=== PATIENT | female | born 1960 | race Two or more races ===

== ENCOUNTER 2017-09-18 11:23 | Emergency (ER) | payer OTHER ==
[2017-09-18 11:36] VITALS: BP 137/76; PULSE 66; TEMP 97.7; BMI 50.8
--- NOTE | 2017-09-18 14:20 | PDOC ---
History of Present Illness - History of Present Illness Initial Comments: 09/18/17 14:18 <Caden Stanton - Last Filed: 09/18/17 18:11> - General History Source: Patient Exam Limitations: No Limitations - History of Present Illness Initial Comments: 09/18/17 18:57 The patient is a 56 year old female, with a significant past medical history of HIV (last CD4 count of 800s and undetectable viral load, on Atripla), HTN, HLD, DM, Arthritis, Asthma, Hx of DVT (on Xarelto) who presents to the emergency department with LLQ abdominal pain for the past 3 days. Patient reports worsening LLQ abdominal with associated nausea and vomiting (nonbilious, nonbloody) after she was brushing her teeth. Patient reports the pain waxes and wanes, radiating to her back. Patient is able to pass flatus and with normal BM yesterday. Patient states her abdominal pain has been worsening and presents to the ED for further evaluation. Note, patient has been taking percocet TID for chronic knee pain with no relief. She denies chest pain, headache or dizziness. She denies fever, chills, diarrhea or constipation. She denies dysuria, frequency, urgency or hematuria. Patient denies sick contacts or recent travel. pt does endorse intermitnte constipation - last bm was yesterday. Allergies: morphine Past surgical history: Cholecystectomy, C section Social history: None PCP: Harper Nino <Sonam Kessler - Last Filed: 09/18/17 18:57> - General Chief Complaint: Pain Stated Complaint: ABD PAIN Time Seen by Provider: 09/18/17 13:57 Past History - Past Medical History Asthma: Yes Cardiac Disorders: No COPD: Yes Dementia: No Diabetes: No Disorders: Yes (renal stones) HTN: Yes Hypercholesterolemia: Yes Liver Disease: No Seizures: No - Surgical History Cholecystectomy: Yes (general anesthesia, no complications) - Suicide/Smoking/Psychosocial Hx Smoking History: Never smoked Have you smoked in the past 12 months: No If you are a former smoker, when did you quit?: Approx. 15 years ago. Cigars Per Day: 0 Information on smoking cessation initiated: No Hx Alcohol Use: No Drug/Substance Use Hx: No Substance Use Type: None Hx Substance Use Treatment: No <Caden Stanton - Last Filed: 09/18/17 18:11> <Sonam Kessler - Last Filed: 09/18/17 18:57> - Past Medical History Allergies/Adverse Reactions: Allergies Allergy/AdvReac Type Severity Reaction Status Date / Time morphine Allergy Intermediate Swelling Verified 09/18/17 11:33 Home Medications: Ambulatory Orders Albuterol Sulfate Inhaler - [Ventolin Hfa Inhaler -] 1 inh PO Q6H PRN 09/18/17 Cetirizine HCl [Zyrtec -] 10 mg PO DAILY 09/18/17 Docusate Sodium 200 mg PO BID 09/18/17 Efavirenz/Emtricitab/Tenofovir [Atripla -] 1 tab PO DAILY 09/18/17 Famotidine [Pepcid -] 20 mg PO DAILY 09/18/17 Gabapentin 600 mg PO BID 09/18/17 Lisinopril 10 mg PO DAILY 09/18/17 Multivitamin [One Daily] 1 each PO DAILY 09/18/17 Naproxen Sodium [Naproxen Sodium Ds] 550 mg PO BID 09/18/17 Oxybutynin Chloride [Oxybutynin Chloride ER] 10 mg PO DAILY 09/18/17 Oxycodone HCl/Acetaminophen [Percocet 10-325 mg Tablet] 1 each PO TID PRN Ranitidine HCl [Zantac] 150 mg PO BID 09/18/17 Rivaroxaban [Xarelto -] 20 mg PO DAILY 09/18/17 Rosuvastatin [Crestor -] 40 mg PO DAILY 09/18/17 Sennosides [Senna] 2 tab PO HS 09/18/17 Trazodone HCl [Desyrel -] 150 mg PO HS 09/18/17 Vitamin B Complex [Bal B-50] 1 each PO DAILY 09/18/17 Review of Systems - Review of Systems Able to Perform ROS?: Yes Comments:: 09/18/17 18:57 CONSTITUTIONAL: No reported: Fever, Chills, Diaphoresis, Generalized Weakness, Malaise, Loss of Appetite HEENT: No reported: Rhinorrhea, Nasal Congestion, Throat Pain, Throat Swelling, Difficulty Swallowing, Mouth Swelling, Ear Pain, Eye Pain, Visual Changes CARDIOVASCULAR: No reported: Chest Pain, Syncope, Palpitations, Irregular Heart Rate, Lightheadedness, Peripheral Edema RESPIRATORY: No reported: Cough, Shortness of Breath, SOB with Exertion, Orthopnea, Wheezing , Stridor, Hemoptysis GASTROINTESTINAL: +abdominal pain. +nausea. +vomiting. No reported: Abdominal Distension, Diarrhea, Constipation, Melena, Hematochezia GENITOURINARY: No reported: Dysuria, Frequency, Urgency, Hesitancy, Flank Pain, Genital Pain MUSCULOSKELETAL: No reported: Myalgia, Arthralgia, Joint Swelling, Back pain, Neck Pain SKIN: No reported: Rash, Itching, Pallor HEMEATOLOGIC/IMMUNOLOGIC: No reported: Easy Bleeding, Easy Bruising, Lymphadenopathy, Frequent infections ENDOCRINE: No reported: Unexplained Weight Gain, Unexplained Weight Loss, Heat Intolerance , Cold Intolerance NEUROLOGIC: No reported: Headache, Focal Weakness, Paresthesias, Vertigo, Lightheadedness, Unsteady Gait, Seizure, Mental Status Changes, Incontinence PSYCHIATRIC: No reported: Anxiety, Depression <Sonam Kessler - Last Filed: 09/18/17 18:57> *Physical Exam - Vital Signs Last Vital Signs Temp Pulse Resp BP Pulse Ox 97.7 F 66 18 137/76 100 09/18/17 11:33 09/18/17 11:33 09/18/17 11:33 09/18/17 11:33 09/18/17 11:33 <Caden Stanton - Last Filed: 09/18/17 18:11> - Vital Signs Last Vital Signs Temp Pulse Resp BP Pulse Ox 97.7 F 66 18 137/76 100 09/18/17 11:33 09/18/17 11:33 09/18/17 11:33 09/18/17 11:33 09/18/17 11:33 - Physical Exam Comments: 09/18/17 18:57 GENERAL: The patient is awake, alert, and fully oriented, Nontoxic - in no acute distress. HEAD: Normocephalic, atraumatic. EYES: extraocular movements intact, sclera anicteric, conjunctiva clear. ENT: Normal voice, Moist mucous membranes. NECK: Normal range of motion, supple LUNGS: Breath sounds equal, clear to auscultation bilaterally. No wheezes, no rhonchi, no rales. HEART: Regular rate and rhythm, without murmur, rub or gallop. ABDOMEN: +Mild diffuse L sided abdominal tenderness. +Obese. Soft, nontender, normoactive bowel sounds. No guarding, no rebound.No CVA tenderness EXTREMITIES: Normal range of motion, no edema. No clubbing or cyanosis. No cords, erythema, or tenderness. NEUROLOGICAL: No facial asymmetry, Normal speech, PSYCH: Normal mood, normal affect. SKIN: Warm, Dry, normal turgor. <Sonam Kessler - Last Filed: 09/18/17 18:57> ED Treatment Course - LABORATORY CBC & Chemistry Diagram: 09/18/17 15:12 09/18/17 15:12 <Caden Stanton - Last Filed: 09/18/17 18:11> - LABORATORY CBC & Chemistry Diagram: 09/18/17 15:12 09/18/17 15:12 - ADDITIONAL ORDERS Additional order review: Laboratory Results 09/18/17 09/18/17 09/18/17 15:12 15:12 15:12 PT with INR 12.80 H INR 1.13 D Sodium Potassium Chloride Carbon Dioxide Anion Gap BUN Creatinine Creat Clearance w eGFR Random Glucose Calcium Total Bilirubin AST ALT Alkaline Phosphatase Total Protein Albumin Lipase 112 Urine Color Lt. yellow Urine Appearance Clear Urine pH 5.5 Ur Specific [employer] >= 1.030 Urine Protein Negative Urine Glucose (UA) Negative Urine Ketones Negative Urine Blood Negative Urine Nitrite Negative Urine Bilirubin Negative Urine Urobilinogen 0.2 09/18/17 15:12 PT with INR INR Sodium 138 Potassium 4.3 Chloride 105 Carbon Dioxide 29 Anion Gap 4 L BUN 13 D Creatinine 0.7 D Creat Clearance w eGFR > 60 Random Glucose 96 D Calcium 8.8 Total Bilirubin 0.4 D AST 16 ALT 32 Alkaline Phosphatase 139 H Total Protein 8.0 Albumin 4.1 Lipase Urine Color Urine Appearance Urine pH Ur Specific [employer] Urine Protein Urine Glucose (UA) Urine Ketones Urine Blood Urine Nitrite Urine Bilirubin Urine Urobilinogen 09/18/17 15:12 RBC 4.28 MCV 86.6 MCHC 32.3 RDW 14.2 MPV 8.8 Neutrophils % 39.9 L Lymphocytes % 48.6 H Monocytes % 8.3 Eosinophils % 2.6 Basophils % 0.6 - Medications Given in the ED: ED Medications Discontinued Medications Generic Name Dose Route Start Last Admin Trade Name Freq PRN Reason Stop Dose Admin Ketorolac Tromethamine 30 mg 09/18/17 14:21 09/18/17 14:54 Toradol Injection - IVPUSH 09/18/17 14:22 Not Given ONCE ONE Oxycodone/Acetaminophen 1 combo 09/18/17 14:35 09/18/17 14:59 Percocet 5/325 - PO 09/18/17 14:36 1 combo ONCE ONE Administration <Sonam Kessler - Last Filed: 09/18/17 18:57> Medical Decision Making - Medical Decision Making 09/18/17 14:29 56y F hx hiv on atripla, dvt on xerolto, presents with complaint of of LLQ pain x 3days, constant but waxes and wanes, radiates to the back, on percocet for knee pain. no fever/chills, urinary or bowel symtoms. on exam she is no distress, but with mild diffuse lower abdominal tenderness differential includes kidney stones, diverticlosis, will ck cbc, cmp, ua will give percocet for pain due to allergy to morphine (States she has swelling ) and being NSAIDS contraindicated in setting of being on a/c A portion of this note was documented by scribe services under my direction. I have reviewed the details of the note, within reason, and agree with the documentation with the following case summary and management plan written by me 09/18/17 18:11 pts labs urnemarkble states she is feeling better she eloped priro to discharge <Caden Stanton - Last Filed: 09/18/17 18:11> *DC/Admit/Observation/Transfer <Caden Stanton - Last Filed: 09/18/17 18:11> - Attestations Scribe Attestion: 09/18/17 18:47 Documentation prepared by Sonam Kessler, acting as medical equipment repairer for Caden Stanton MD <Sonam Kessler - Last Filed: 09/18/17 18:57> Diagnosis at time of Disposition: Abdominal pain, pt eloped ripping her IV out in the process...md aware. - Discharge Dispostion Disposition: ELOPED Condition at time of disposition: Stable - Referrals Referrals: Harper Joyce MD [Primary Care Provider] - - Patient Instructions - Post Discharge Activity
[2017-09-18] MEDS ORDERED: KETOROLAC TROMETHAMINE 30 MG/1 ML VIAL IVPUSH ONE (14:21)
[2017-09-18 16:34] LABS: BASOPHIL 0.6 % (0-2.0); EOSINOPHIL 2.6 % (0-4.5); MCHC 32.3 g/dl (32.0-36.0); MEAN CELL VOLUME 86.6 fl (80-96); MEAN PLT VOLUME 8.8 fl (7.5-11.1); NEUTROPHILS 39.9 % (42.8-82.8); PLATELET COUNT 186 K/MM3 (134-434); RDW 14.2 % (11.6-15.6); WHITE BLOOD COUNT 4.7 K/mm3 (4.0-10.0)
[2017-09-18 16:44] LABS: PH,URINE 5.5 (5.0-8.0); URINE APPEARANCE CLEAR; URINE BILIRUBIN NEGATIVE (NEGATIVE); URINE BLOOD NEGATIVE (NEGATIVE); URINE COLOR LT. YELLOW; URINE GLUCOSE (UA) NEGATIVE (NEGATIVE); URINE KETONE NEGATIVE (NEGATIVE); URINE NITRITE NEGATIVE (NEGATIVE); URINE PROTEIN NEGATIVE (NEGATIVE); URINE UROBILINOGEN 0.2 mg/dL (0.2-1.0)
[2017-09-18 17:01] LABS: INR 1.13 (0.82-1.09); PROTHROMBIN TIME (PATIENT) 12.8 SEC (9.98-11.88)
[2017-09-18 17:12] LABS: ALBUMIN 4.1 g/dl (3.4-5.0); ANION GAP 4 (8-16); CALCIUM 8.8 mg/dL (8.5-10.1); CO2 29 mmol/L (21-32); CREATININE 0.7 mg/dL (0.55-1.02); GLUCOSE,RANDOM 96 mg/dL (74-106); SGPT/ALT 32 U/L (12-78)
[2017-09-18 17:17] LABS: ALK PHOS 139 U/L (45-117); BILIRUBIN,TOTAL 0.4 mg/dL (0.2-1.0); SGOT/AST 16 U/L (15-37)
[2017-09-18 20:15] LABS: URINE LEUK ESTERASE Negative (NEGATIVE)
== END 2017-09-18 18:11 | disposition left against medical advice (07) ==
LOC: JER 11:23
DX: R10.32 Left lower quadrant pain (principal); I10 Essential (primary) hypertension; E11.9 Type 2 diabetes mellitus without complications; E78.00 Pure hypercholesterolemia, unspecified; J45.909 Unspecified asthma, uncomplicated; M12.9 Arthropathy, unspecified; Z86.718 Personal history of other venous thrombosis and embolism; Z79.01 Long term (current) use of anticoagulants; Z21 Asymptomatic human immunodeficiency virus [HIV] infection status
CPT/HCPCS: 36415; 80053; 81003; 83690; 85025; 85610; 99283-25

== ENCOUNTER → 2019-06-25 | Outpatient (CLI) | payer OTHER | LOC: YHH 14:29 ==

== ENCOUNTER 2019-07-02 09:13 | Day surgery (SDC) | payer OTHER ==
[2019-07-01 14:51] VITALS: BMI 46.6
[2019-07-02 11:21] VITALS: TEMP 97.5
[2019-07-02 15:04] VITALS: BP 133/80; PULSE 72
--- NOTE | 2019-07-03 15:56 | PATH ---
Surgical Pathology Report Patient Name: LINDSEY DEVLIN [facility]. Rec. #: [id number] /Age/Gender: 1960 (Age: 58) / F Account: [id number] Location: U-ENDOSCOPY Taken: 07/02/2019 Received: 07/02/2019 Reported: 07/03/2019 Physicians: Jaz Alicea M.D. Specimen(s) Received A: DUODENUM, SECOND PORTION AND BULB B: CARDIA POLYP C: ANTRUM D: GE JUNCTION E: MID ESOPHAGUS Clinical History Dysphagia Postoperative diagnosis: GERD, hiatal hernia Final Diagnosis A. DUODENUM, SECOND PORTION AND BULB, BIOPSY: DUODENAL MUCOSA WITH MODERATE ACUTE AND CHRONIC DUODENITIS. B. STOMACH, CARDIA POLYP, BIOPSY: FUNDIC GLAND POLYP. NO HELICOBACTER-LIKE ORGANISMS IDENTIFIED. C. STOMACH, ANTRUM, BIOPSY: GASTRIC ANTRAL MUCOSA WITH MODERATE CHRONIC GASTRITIS. IMMUNOHISTOCHEMICAL STAIN FOR H. PYLORI IS NEGATIVE. D. GE JUNCTION, BIOPSY: SQUAMOUS MUCOSA WITH CHANGES OF MODERATE REFLUX TYPE ESOPHAGITIS. NO COLUMNAR MUCOSA, INTESTINAL METAPLASIA, OR DYSPLASIA IDENTIFIED. E. MID ESOPHAGUS, BIOPSY: SQUAMOUS MUCOSA WITH CHANGES OF MILD REFLUX TYPE ESOPHAGITIS. Electronically Signed Delores Traylor M.D. Addendum Reported: 07/04/2019 Addendum Diagnosis Part B, Immunohistochemical stain for H. pylori is negative. Delores Traylor M.D. Gross Description A. Received in formalin, labeled "second portion of duodenum" are 3 campos, irregular portions of soft tissue ranging in size from 0.4-0.5 cm. in greatest dimension. The specimens are submitted in toto in one cassette. B. Received in formalin, labeled "cardia polyp" is a campos, irregular portion of soft tissue measuring 0.4 cm. in greatest dimension. The specimen is submitted in toto in one cassette. C. Received in formalin, labeled "antrum" are 4 campos, irregular portions of soft tissue ranging in size from 0.2-0.5 cm. in greatest dimension. The specimens are submitted in toto in one cassette. D. Received in formalin, labeled "GE junction" are 3 campos, irregular portions of soft tissue measuring 0.2 and 0.4 cm. in greatest dimension. The specimens are submitted in toto in one cassette. E. Received in formalin, labeled "mid esophagus" are 2 campos, irregular portions of soft tissue measuring 0.3 cm. in greatest dimension. The specimens are submitted in toto in one cassette. [email or web address]/07/02/2019 ángel07/02/2019
== END 2019-07-02 12:10 | disposition home or self-care (01) ==
LOC: JASU-ENDO 09:13
PROVIDERS: ATTEND Internal Medicine Gastroenterology
PROC: 0DB68ZX Excision of Stomach, Via Natural or Artificial Opening Endoscopic, Diagnostic (ICD-10-PCS; 2019-07-02)
PROC: 0DB28ZX Excision of Middle Esophagus, Via Natural or Artificial Opening Endoscopic, Diagnostic (ICD-10-PCS; 2019-07-02)
PROC: 0DB38ZX Excision of Lower Esophagus, Via Natural or Artificial Opening Endoscopic, Diagnostic (ICD-10-PCS; 2019-07-02)
PROC: 0DB98ZX Excision of Duodenum, Via Natural or Artificial Opening Endoscopic, Diagnostic (ICD-10-PCS; principal; 2019-07-02 09:45)
DX: K21.9 Gastro-esophageal reflux disease without esophagitis (principal); K44.9 Diaphragmatic hernia without obstruction or gangrene; K22.70 Barrett's esophagus without dysplasia; K31.7 Polyp of stomach and duodenum; K29.80 Duodenitis without bleeding; I10 Essential (primary) hypertension; J44.9 Chronic obstructive pulmonary disease, unspecified; E66.01 Morbid (severe) obesity due to excess calories; G47.30 Sleep apnea, unspecified
CPT/HCPCS: 82962; 88305-TC; 88342-TC

== ENCOUNTER 2022-03-21 04:31 | Day surgery (SDC) | payer OTHER ==
[2022-03-16 16:31] VITALS: BMI 46.7
[2022-03-21] MEDS ORDERED: LIDOCAINE HCL/PF 1% SDV 5ML VIAL ONE (14:19)
[2022-03-21] MEDS ORDERED: LIDOCAINE HCL 1% PRESERVATIVE FREE - 30ML VIAL IJ ONE (14:46)
[2022-03-21] MEDS ORDERED: BUPIVACAINE HCL/PF 0.75% 10 ML VIAL NR ONE (14:52)
[2022-03-21 15:11] VITALS: BP 148/70; PULSE 68; TEMP 97.8
== END 2022-03-21 15:45 | disposition home or self-care (01) ==
LOC: JASU-SURG 04:31
PROVIDERS: ATTEND Pain Medicine Pain Medicine
PROC: BR16YZZ Fluoroscopy of Lumbar Facet Joint(s) using Other Contrast (ICD-10-PCS; 2022-03-21)
PROC: 3E0T3BZ Introduction of Anesthetic Agent into Peripheral Nerves and Plexi, Percutaneous Approach (ICD-10-PCS; principal; 2022-03-21 16:30)
DX: M47.816 Spondylosis without myelopathy or radiculopathy, lumbar region (principal); I10 Essential (primary) hypertension; E10.9 Type 1 diabetes mellitus without complications; Z79.4 Long term (current) use of insulin
CPT/HCPCS: 76000-TC-FY

== ENCOUNTER 2022-04-06 04:08 | Day surgery (SDC) | payer OTHER ==
[2022-04-05 11:26] VITALS: BMI 46.7
[2022-04-06] MEDS ORDERED: DEXAMETHASONE SOD PHOSPHATE 4 MG/1 ML VIAL ONE ×3 (09:48→10:36)
[2022-04-06] MEDS ORDERED: MIDAZOLAM HCL 2 MG/2 ML SINGLE DOSE VIAL ONE ×2 (09:49→10:06)
[2022-04-06] MEDS ORDERED: PROPOFOL 20 ML ONE (09:50)
[2022-04-06] MEDS ORDERED: oxyCODONE HCL 5 MG TABLET PO PRN ×2 (11:12)
[2022-04-06] MEDS ORDERED: ONDANSETRON 4 MG/2 ML VIAL IVPUSH PRN (11:12)
[2022-04-06] MEDS ORDERED: LACTATED RINGERS SOLUTION 1,000 ML IV SCH (11:15)
[2022-04-06 15:36] VITALS: BP 133/79; PULSE 79; TEMP 97.5
== END 2022-04-06 16:10 | disposition home or self-care (01) ==
LOC: JASU-SURG 04:08
PROVIDERS: ATTEND Obstetrics & Gynecology
PROC: 0UB97ZZ Excision of Uterus, Via Natural or Artificial Opening (ICD-10-PCS; principal; 2022-04-06 10:15)
DX: N95.0 Postmenopausal bleeding (principal); C54.1 Malignant neoplasm of endometrium; E11.9 Type 2 diabetes mellitus without complications
CPT/HCPCS: 82962; 88305-TC; 94760

== ENCOUNTER 2022-04-28 10:34 | Emergency (ER) | payer OTHER ==
[2022-04-28] MEDS ORDERED: BEBTELOVIMAB (EUA) 175 MG/2 ML VIAL IVPUSH ONE (10:38)
[2022-04-28 10:54] VITALS: BMI 47.6
[2022-04-28 12:53] VITALS: BP 131/69; PULSE 78; TEMP 99.3
== END 2022-04-28 13:00 | disposition home or self-care (01) ==
LOC: JCOVINFU 10:34
DX: U07.1 COVID-19 (principal)
CPT/HCPCS: 96374; 99284-25; M0222; Q0222

== ENCOUNTER 2024-01-26 15:06 | Emergency (ER) | payer OTHER ==
[2024-01-26 15:15] VITALS: BP 130/49; PULSE 76; RESP 18; TEMP 98.4; BMI 43.5
[2024-01-26 16:26] LABS: BASO % 0.8 % (0-2.0); HEMATOCRIT 36.4 % (32.4-45.2); LYMPH % 39.4 % (8-40); MCH 27.8 pg (25.7-33.7); MEAN CELL VOLUME 84.4 fl (80-96); MEAN PLT VOLUME 8.6 fl (7.5-11.1); MONO % 6.8 % (3.8-10.2); PLATELET COUNT 275 10^3/uL (134-434); RBC 4.32 M/mm3 (3.60-5.2); RDW 15.2 % (11.6-15.6); WHITE BLOOD COUNT 4.6 K/mm3 (4.0-10.0)
[2024-01-26 16:41] LABS: POTASSIUM 4.6 mmol/L (3.5-5.1)
[2024-01-26 16:43] LABS: ALBUMIN 3.9 g/dl (3.4-5.0); BLOOD UREA NITROGEN 12.9 mg/dL (7-18); CALCIUM 9.8 mg/dL (8.5-10.1)
[2024-01-26 16:46] LABS: CREATININE 0.9 mg/dL (0.55-1.3)
[2024-01-26 16:48] LABS: BILIRUBIN,TOTAL 0.4 mg/dL (0.2-1)
== END 2024-01-26 18:32 | disposition home or self-care (01) ==
LOC: JER 15:06
DX: R19.7 Diarrhea, unspecified (principal); R10.10 Upper abdominal pain, unspecified
CPT/HCPCS: 36415; 74177-TC; 80053; 83690; 85025; 99285-25; Q9967